=== PATIENT | male | born 1980 | race Caucasian/White ===

== ENCOUNTER 2020-08-19 11:13 | Emergency (ER) | payer MEDICARE ==
[~2020-08-19 11:13] MED LIST: FLEXERIL10 MG PO; IBUPROFEN800 MG PO
[2020-08-19] MEDS ORDERED: NORCO 5-325 TA1 EACH PO (12:44)
[2020-08-19] MEDS ORDERED: MOBIC15 MG PO (12:44)
== END 2020-08-19 15:19 | disposition home or self-care (01) ==
LOC: FER 11:13
DX: S82.892A Other fracture of left lower leg, initial encounter for closed fracture (principal); W19.XXXA Unspecified fall, initial encounter; Y92.009 Unspecified place in unspecified non-institutional (private) residence as the place of occurrence of the external cause
CPT/HCPCS: 73610

== ENCOUNTER 2022-03-10 12:42 | Emergency (ER) | payer OTHER ==
[~2022-03-10 12:42] MED LIST changes: +MOBIC15 MG PO; +NORCO 5-325 TA1 EACH PO
== END 2022-03-10 14:56 | disposition home or self-care (01) ==
LOC: FER 12:42
DX: S50.02XA Contusion of left elbow, initial encounter (principal); Z28.310 Unvaccinated for COVID-19; Z87.891 Personal history of nicotine dependence; W19.XXXA Unspecified fall, initial encounter; Y92.009 Unspecified place in unspecified non-institutional (private) residence as the place of occurrence of the external cause
CPT/HCPCS: 73080